=== PATIENT | male | born 1990 | race Caucasian/White ===

== ENCOUNTER 2019-01-15 22:22 | Emergency (ER) | payer BC ==
[2019-01-15] MEDS: Sodium Chloride 0.9% 1,000 ML IV ONE (22:40)
--- NOTE | 2019-01-16 06:45 | EDM.PDOC ---
ED HPI GENERAL MEDICAL PROBLEM - General Chief Complaint: General Stated Complaint: INTOXICATED Time Seen by Provider: 01/15/19 22:40 Source of Information: Reports: Patient, Family History Limitations: Reports: Altered Mental Status, Intoxication - History of Present Illness INITIAL COMMENTS - FREE TEXT/NARRATIVE: This is a 28yo M here by EMS. He was drinking with friends at a house across the street from the hospital and left and was in someone else's backyard and fell down. Law enforcement was called to suspicious activity as the patient was found lying in someone else's back yard. He was not verbal and incoherent and sent via ambulance to the ER. Upon arrival his came to the ER from home. She states she was home cooking and tried to call him but only heard law enforcement in the background. She states he is not suppose to be drinking and should have been going home. He is not verbal but recognizes his . He does have some scratches on the elbows and hand. Location: Reports: Generalized Improves with: Reports: None Worsens with: Reports: None - Related Data Allergies Allergy/AdvReac Type Severity Reaction Status Date / Time No Known Allergies Allergy Verified 01/15/19 23:04 Home Meds: Home Meds Dextroamphetamine/Amphetamine [Adderall] 60 mg PO DAILY 01/15/19 [History] ED ROS GENERAL - Review of Systems Review Of Systems: ROS reveals no pertinent complaints other than HPI. ED EXAM, GENERAL - Physical Exam Exam: See Below Free Text/Narrative:: Patient does not follow commands but at the persistence of does cooperate. He does appear very intoxicated. I did ask about other illicit drugs but patient does not reply. states he has occasionally used drugs in the past. She was not with him and does not know the extent of alcohol or drugs. Exam Limited By: Intoxication General Appearance: No Apparent Distress, Obtunded Ears: Other (sun burn of the pinna b/l ) Nose: Nasal Drainage Throat/Mouth: Normal Inspection Head: Atraumatic, Normocephalic Neck: Normal Inspection, Supple, Non-Tender Respiratory/Chest: No Respiratory Distress, Lungs Clear, Normal Breath Sounds Cardiovascular: Normal Peripheral Pulses, Regular Rate, Rhythm GI/Abdominal: Normal Bowel Sounds, Soft, Non-Tender Back Exam: Normal Inspection Extremities: Normal Inspection Neurological: Inattentive, Disoriented Psychiatric: Tearful Skin Exam: Warm, Dry, Intact, Wound/Incision (small scrapes) Course - Vital Signs Last Recorded V/S: Last Vital Signs Temp 36.9 C 01/15/19 23:30 Pulse 71 01/15/19 23:30 Resp 20 01/15/19 23:30 BP 125/77 01/15/19 23:30 Pulse Ox 98 01/15/19 23:30 - Orders/Labs/Meds Orders: Active Orders 24 hr Category Date Time Status Sodium Chloride 0.9% [Normal Saline] 1,000 ml Med 01/16/19 05:59 Active IV .BOLUS Medication Orders Sodium Chloride (Normal Saline) 1,000 mls @ 999 drops/hr IV .BOLUS ONE Stop: 01/16/19 20:59 Last Admin: 01/15/19 22:40 Dose: 999 drops/hr Labs: Laboratory Tests 01/15/19 01/15/19 01/15/19 Range/Units 22:45 22:45 22:45 WBC 11.1 H (4.0-11.0) K/uL RBC 5.02 (4.50-6.50) M/uL Hgb 15.7 (13.0-18.0) g/dL Hct 45.4 (40.0-54.0) % MCV 90 (76-96) fL MCH 31.3 (27.0-32.0) pg MCHC 34.6 (31.0-35.0) g/dL RDW 14.8 (11.0-16.0) % Plt Count 257 (150-400) K/uL MPV 9.1 (6.0-10.0) fL Neut % (Auto) 55.3 (45.0-70.0) % Lymph % (Auto) 34.0 (20.0-40.0) % [place] % (Auto) 9.4 (3.0-10.0) % Eos % (Auto) 0.9 L (1.0-5.0) % Baso % (Auto) 0.4 (0.0-0.5) % Neut # (Auto) 6.15 (2.00-7.50) K/uL Lymph # (Auto) 3.78 (1.50-4.00) K/uL [place] # (Auto) 1.05 H (0.20-0.80) K/uL Eos # (Auto) 0.10 (0.04-0.40) K/uL Baso # (Auto) 0.04 (0.02-0.10) K/uL Sodium 144 (136-145) mmol/L Potassium 3.5 (3.5-5.1) mmol/L Chloride 103 (98-107) mmol/L Carbon Dioxide 25.4 (21.0-32.0) mmol/L Anion Gap 19.1 H (5.0-15.0) mmol/L BUN 18 (8-26) mg/dL Creatinine 0.84 (0.70-1.30) mg/dL Est Cr Clr Drug Dosing TNP Estimated GFR (MDRD) > 60 (>60) MLS/MIN BUN/Creatinine Ratio 21.4 (6-25) Glucose 97 (74-100) mg/dL Calcium 8.9 (8.5-10.1) mg/dL Total Bilirubin 0.3 (0.0-1.0) mg/dL AST 38 H (15-37) U/L ALT 31 (12-78) U/L Alkaline Phosphatase 101 (46-116) U/L Total Protein 7.9 (6.4-8.2) g/dL Albumin 4.4 (3.4-5.0) g/dL Globulin 3.5 (2.2-4.2) g/dL Albumin/Globulin Ratio 1.3 (0.8-2.0) TSH, Ultra Sensitive 6.659 H (0.358-3.740) uIU/mL Urine Color Urine Appearance (CLEAR) Urine pH (5.0-8.0) Ur Specific [place] (1.003-1.030) Urine Protein (NEGATIVE) mg/dL Urine Glucose (UA) (NEGATIVE) mg/dL Urine Ketones (NEGATIVE) mg/dL Urine Occult Blood (NEGATIVE) Urine Nitrite (NEGATIVE) Urine Bilirubin (NEGATIVE) Urine Urobilinogen (0.2-1.0) E.U./dL Ur Leukocyte Esterase (NEGATIVE) Urine Opiates Screen (NEGATIVE) Ur Oxycodone Screen (NEGATIVE) Urine Methadone Screen (NEGATIVE) Ur Barbiturates Screen (NEGATIVE) Ur Tricyclics Screen (NEGATIVE) Ur Phencyclidine Scrn (NEGATIVE) Ur Amphetamine Screen (NEGATIVE) U Methamphetamines Scrn (NEGATIVE) Urine MDMA Screen (NEGATIVE) U Benzodiazepines Scrn (NEGATIVE) U Cocaine Metab Screen (NEGATIVE) U Marijuana (THC) Screen (NEGATIVE) Ethyl Alcohol 394.0 H* (0.0-0.0) mg/dL 01/15/19 01/15/19 Range/Units 23:35 23:35 WBC (4.0-11.0) K/uL RBC (4.50-6.50) M/uL Hgb (13.0-18.0) g/dL Hct (40.0-54.0) % MCV (76-96) fL MCH (27.0-32.0) pg MCHC (31.0-35.0) g/dL RDW (11.0-16.0) % Plt Count (150-400) K/uL MPV (6.0-10.0) fL Neut % (Auto) (45.0-70.0) % Lymph % (Auto) (20.0-40.0) % [place] % (Auto) (3.0-10.0) % Eos % (Auto) (1.0-5.0) % Baso % (Auto) (0.0-0.5) % Neut # (Auto) (2.00-7.50) K/uL Lymph # (Auto) (1.50-4.00) K/uL [place] # (Auto) (0.20-0.80) K/uL Eos # (Auto) (0.04-0.40) K/uL Baso # (Auto) (0.02-0.10) K/uL Sodium (136-145) mmol/L Potassium (3.5-5.1) mmol/L Chloride (98-107) mmol/L Carbon Dioxide (21.0-32.0) mmol/L Anion Gap (5.0-15.0) mmol/L BUN (8-26) mg/dL Creatinine (0.70-1.30) mg/dL Est Cr Clr Drug Dosing Estimated GFR (MDRD) (>60) MLS/MIN BUN/Creatinine Ratio (6-25) Glucose (74-100) mg/dL Calcium (8.5-10.1) mg/dL Total Bilirubin (0.0-1.0) mg/dL AST (15-37) U/L ALT (12-78) U/L Alkaline Phosphatase (46-116) U/L Total Protein (6.4-8.2) g/dL Albumin (3.4-5.0) g/dL Globulin (2.2-4.2) g/dL Albumin/Globulin Ratio (0.8-2.0) TSH, Ultra Sensitive (0.358-3.740) uIU/mL Urine Color Yellow Urine Appearance Clear (CLEAR) Urine pH 5.5 (5.0-8.0) Ur Specific [place] <= 1.005 (1.003-1.030) Urine Protein Negative (NEGATIVE) mg/dL Urine Glucose (UA) Negative (NEGATIVE) mg/dL Urine Ketones Negative (NEGATIVE) mg/dL Urine Occult Blood Negative (NEGATIVE) Urine Nitrite Negative (NEGATIVE) Urine Bilirubin Negative (NEGATIVE) Urine Urobilinogen 0.2 (0.2-1.0) E.U./dL Ur Leukocyte Esterase Negative (NEGATIVE) Urine Opiates Screen Negative (NEGATIVE) Ur Oxycodone Screen Negative (NEGATIVE) Urine Methadone Screen Negative (NEGATIVE) Ur Barbiturates Screen Negative (NEGATIVE) Ur Tricyclics Screen Negative (NEGATIVE) Ur Phencyclidine Scrn Negative (NEGATIVE) Ur Amphetamine Screen Positive H (NEGATIVE) U Methamphetamines Scrn Negative (NEGATIVE) Urine MDMA Screen Negative (NEGATIVE) U Benzodiazepines Scrn Negative (NEGATIVE) U Cocaine Metab Screen Negative (NEGATIVE) U Marijuana (THC) Screen Negative (NEGATIVE) Ethyl Alcohol (0.0-0.0) mg/dL Meds: Medications Generic Name Dose Route Start Last Admin Trade Name Eyal PRN Reason Stop Dose Admin Sodium Chloride 1,000 mls @ 999 drops/hr 01/16/19 05:59 01/15/19 22:40 Normal Saline IV 01/16/19 20:59 999 drops/hr .BOLUS ONE Administration Departure - Departure Time of Disposition: 23:59 Disposition: Home, Self-Care 01 Condition: Fair Clinical Impression: Alcohol intoxication Qualifiers: Complication of substance-induced condition: with delirium Qualified Code(s): F10.921 - Alcohol use, unspecified with intoxication delirium - Discharge Information Instructions: Dehydration, Adult, [id number] Forms: ED Department Discharge - Problem List & Annotations (1) Alcohol intoxication SNOMED Code(s): 95669155 Code(s): F10.929 - ALCOHOL USE, UNSPECIFIED WITH INTOXICATION, UNSPECIFIED Status: Acute Current Visit: Yes Qualifiers: Complication of substance-induced condition: with delirium Qualified Code(s ): F10.921 - Alcohol use, unspecified with intoxication delirium - Problem List Review Problem List Initiated/Reviewed/Updated: Yes - Assessment/Plan Plan: Patient did become more coherent and was apologetic to and staff prior to discharge. Discussed labs with and TSH finding and slight elevation of AST. Discussed close monitoring until sober and f/u in clinic as needed. to bring patient in if any other emergent concerns. Patient to f/u for discussion of detox/rehab in clinic.
== END 2019-01-15 23:45 | disposition home or self-care (01) ==
LOC: LB.ED 22:22
DX: F10.921 Alcohol use, unspecified with intoxication delirium (principal); S50.312A Abrasion of left elbow, initial encounter; S50.311A Abrasion of right elbow, initial encounter; W18.39XA Other fall on same level, initial encounter; Y90.8 Blood alcohol level of 240 mg/100 ml or more
CPT/HCPCS: 36415; 80053; 80307; 81003; 84443; 85025; 96360; 99284; A0425; A0429; G0480; J7030